=== PATIENT | female | born 1980 | race Hispanic/Latino ===

== ENCOUNTER 2017-07-09 07:38 | Day surgery (SDC) | payer MEDICAID ==
--- NOTE | 2017-07-09 08:43 | Anesthesia Consultation ---
Anesthesia Consult and Med Hx Date of service: 07/09/17 - Airway Anesthetic Teeth Evaluation: Good ROM Head & Neck: Adequate Mental/Hyoid Distance: Adequate Mallampati Class: Class II Intubation Access Assessment: Good - Pulmonary Exam CTA: Yes - Cardiac Exam Cardiac Exam: No Murmur - Pre-Operative Health Status ASA Pre-Surgery Classification: ASA2 Proposed Anesthetic Plan: General - Pulmonary Hx Smoking: Yes - Central Nervous System Hx Psychiatric Problems: Yes - Other Systems Hx Cancer: No
--- NOTE | 2017-07-09 08:43 | Anesthesia Day of Surgery ---
Anesthesia Day of Surgery - Day of Surgery Patient Examined: Yes Patient H&P Reviewed: Yes Patient is NPO: Yes
--- NOTE | 2017-07-09 08:53 | Short Stay Summary ---
Short Stay Documentation Date of service: 07/09/17 Narrative H&P: Pt is a 37yo WF LMP 07/09/17 presents for surgical evaluation and treatment of endometrial polyps. Pelvic u/s showed a thickened endometrium and endometrial biopsy showed endometrial polyps. She is therefore scheduled for a Hysteroscopy with D&C. - History Principal diagnosis: Endometrial polyps H&P: obtained from office Past Medical History: diabetes, pulmonary embolism, other (heart disease; PCOS) Past Surgical History: Other (Cardiac ablation; BTL) Social history: no significant social history, - Allergies and Medications Current Medications: Allergies No Known Allergies Allergy (Unverified 07/03/17 14:32) Home Medications Medication Instructions Recorded Confirmed Last Taken Type Citalopram Hydrobromide [Celexa] 40 mg PO DAILY 07/03/17 07/03/17 07/08/17 History metFORMIN [Glucophage] 1,000 mg PO BID 07/03/17 07/03/17 07/08/17 History ALPRAZolam [Xanax TAB] 0.5 mg PO TID PRN 07/09/17 07/09/17 07/08/17 History Active Medications Famotidine (Pepcid) 20 mg PO PREOP NR Stop: 07/09/17 11:00 Lactated Ringer's (Lactated Ringers) 1,000 mls @ 100 mls/hr IV DIRECT VICENTE Midazolam HCl (Versed) 2 mg IV PREOP NR Stop: 07/09/17 23:59 - Physical exam General appearance: no acute distress Integumentary: no rash HEENT: Atraumatic Lungs: Clear to auscultation Breasts: deferred Heart: Regular rate Gastrointestinal: normal Female Genitourinary: deferred Extremities: no ischemia Neurological: Normal gait, Normal speech - Brief post op/procedure progress note Date of procedure: 07/09/17 Pre-op diagnosis: 1. DUB 2. Endometrial polyps Post-op diagnosis: same Procedure: 1. Hysteroscopy 2. D&C Anesthesia: MAC Findings: An enlarged uterus with small amounts of endometrial polyps Surgeon: JAJA HENRIQUEZ Estimated blood loss: minimal Pathology: list (Endometrial curretings) Specimen disposition: to lab Condition: stable - Hospital course Hospital course: Unremarkable. - Disposition Condition at discharge: Good Disposition: DC- TO HOME OR SELFCARE - Discharge Diagnoses (1) DUB (dysfunctional uterine bleeding) Status: Resolved (2) Endometrial polyp Status: Resolved Short Stay Discharge Plan Activity: no restrictions Diet: regular Follow up with: MAMI FALL MD [Primary Care Provider] - 7 Days JAJA HENRIQUEZ MD [Staff Physician] - 7 Days Prescriptions: HYDROcodone/APAP 5-325 [[place] 5/325] 1 each PO Q6HR PRN #20 tablet PRN Reason: Pain Ibuprofen [Motrin] 800 mg PO Q8HR PRN #30 tablet PRN Reason: Moder Pain Unrelieved By [place]
[2017-07-09] MEDS ORDERED: LACTATED RINGERS 1,000 ML IV SCH (09:00)
[2017-07-09] MEDS ORDERED: ANCEF/STERILE WATER 2 GM/20 ML 2 GM/20 ML SYRINGE IV NR (09:00)
[2017-07-09] MEDS ORDERED: PEPCID PO NR (09:00)
[2017-07-09] MEDS ORDERED: VERSED IV NR (09:00)
[2017-07-09] MEDS ORDERED: SILVER NITRATE TP ONE (09:18)
[2017-07-09] MEDS ORDERED: NACL 0.9% IR ONE ×2 (09:21)
[2017-07-09 09:22] LABS: Hematocrit 41.3 % (30.3-42.9); Hemoglobin 13.9 gm/dl (10.1-14.3)
[2017-07-09] MEDS ORDERED: SUBLIMAZE ONE (09:27)
[2017-07-09] MEDS ORDERED: DIPRIVAN 10 MG/ML IV ONE (09:27)
[2017-07-09] MEDS ORDERED: ZOFRAN ONE ×2 (09:27→10:17)
[2017-07-09] MEDS ORDERED: DECADRON ONE (09:27)
[2017-07-09] MEDS ORDERED: XYLOCAINE MPF 2% ONE (09:27)
[2017-07-09] MEDS ORDERED: TORADOL ONE (09:27)
--- NOTE | 2017-07-09 10:07 | Operative Report ---
Operative Report Operative Report: PREOPERATIVE DIAGNOSIS: 1. Dysfunctional uterine bleeding 2. Endometrial polyps POSTOPERATIVE DIAGNOSIS: Same OPERATIVE PROCEDURE: 1. Hysteroscopy 2. Dilatation and curettage. SURGEON: Hermilo Bowser MD ANESTHESIA: Gen. mask ANESTHESIOLOGIST: Dr. Orellana ESTIMATED BLOOD LOSS: 10 mL's FINDINGS: A 10-12 week size uterus with scant amount of endometrial polyps COMPLICATIONS: None COUNTS: Correct x3. PROCEDURE: After the patient was correctly identified, and after general anesthesia was administered, the patient was prepped and draped in the usual sterile fashion and placed in dorsal lithotomy position. First, the bladder was emptied using a straight catheter. Next, a speculum was placed in the vaginal vault and the anterior lip of the cervix was grasped using a single- tooth tenaculum. The uterus was sounded to 10 cm. The cervical os was sequentially dilated, and the hysteroscope was introduced into the cervical canal. Visualization of endometrial cavity showed scant amounts of endometrial polyps. Next the hysteroscope was removed, and gentle curettage was performed yielding scant amounts of endometrial polyps and endometrial tissue which was sent to pathology. At this point, the procedure was considered complete. All instruments were removed from the vagina. The patient tolerated the procedure well and was transferred to the recovery room in stable condition.
[2017-07-09] MEDS ORDERED: DILAUDID ONE (10:18)
[2017-07-09] MEDS ORDERED: DILAUDID IV PRN (10:19)
[2017-07-09] MEDS: DILAUDID IV PRN ×2 (10:25→10:35)
[2017-07-09] MEDS ORDERED: ZOFRAN IV ONE (11:00)
[2017-07-09 13:17] VITALS: BP 120/68
--- NOTE | 2017-07-09 13:30 | Post Anesthesia Evaluation ---
- Post Anesthesia Evaluation Patient Participated: Yes Airway Patent: Yes Stable Respiratory Function: Yes Nausea/Vomiting: No Temp > 96.8F: Yes Pain Manageable: Yes Adequeate Hydration: Yes Anesthesia Complications: No Block Receding Appropriately: Not Applicable Patient on Ventilator: No
== END 2017-07-09 11:55 | disposition home or self-care (01) ==
LOC: OR 07:38
PROVIDERS: ATTEND Obstetrics & Gynecology
DX: N93.8 Other specified abnormal uterine and vaginal bleeding (principal); N84.0 Polyp of corpus uteri; E11.9 Type 2 diabetes mellitus without complications; F17.200 Nicotine dependence, unspecified, uncomplicated; Z86.711 Personal history of pulmonary embolism; Z79.01 Long term (current) use of anticoagulants; Z79.84 Long term (current) use of oral hypoglycemic drugs
CPT/HCPCS: 36415; 58558; 81025; 82962; 85014; 85018; 88305; A4217; J0690; J1100; J1170; J2250; J2405; J2704; J3010; J7120; J1885